=== PATIENT | male | born 1945 | race Caucasian/White ===

== ENCOUNTER → 2020-06-26 | Outpatient (CLI) | payer MEDICARE, BC ==
[~2020-06-26] MED LIST: NASACORT AQ N16.5 GM NS
== END ==
LOC: COL.RAD 11:32
DX: N28.1 Cyst of kidney, acquired (principal)

== ENCOUNTER 2021-08-28 13:23 | Outpatient (CLI) | payer MEDICARE, BC ==
[~2021-08-28] VITALS: Ht 167.6 cm; Wt 95.4 kg
[2021-08-28 13:20] VITALS: BP 122/72; PULSE 76; TEMP 97.9
[~2021-08-28 13:23] MED LIST changes: +COZAAR 50MG50 MG/TAB PO
[2021-08-28 13:30] VITALS: BP 131/70; PULSE 76
[2021-08-28 13:45] VITALS: BP 100/70; PULSE 72
[2021-08-28 14:00] VITALS: BP 98/64; PULSE 68
[2021-08-28 14:15] VITALS: BP 100/65; PULSE 67
== END 2021-08-28 15:05 ==
LOC: EUO 13:23
DX: U07.1 COVID-19 (principal)
CPT/HCPCS: M0222; Q0222